=== PATIENT | male | born 1935 | race Caucasian/White ===

== ENCOUNTER 2017-04-02 12:48 | Emergency (ER) | payer MEDICARE ==
--- NOTE | 2017-04-02 13:33 | ERPHSYRPT ---
- History of Present Illness Time Seen by Provider: 04/02/17 13:30 Source: patient Exam Limitations: no limitations Physician History: mild to mod right neck pain for 2 months, no recent injury, hx shingles, no dm, no fever, no trouble swallowing, +positional ache pain is nonrad Timing/Duration: week(s), intermittent Severity: mild Modifying Factors: Improves With: movement Associated Symptoms: No vomiting, No fever, No headaches - Review of Systems Constitutional: No Fever Eyes: No Symptoms Ears, Nose, & Throat: No Throat Pain Respiratory: No Symptoms Cardiac: No Symptoms Abdominal/Gastrointestinal: No Symptoms Musculoskeletal: Neck Pain, No Back Pain Skin: No Rash Neurological: No Dizziness, No Focal Weakness, No Headache Psychological: No Symptoms - Nursing Vital Signs Nursing Vital Signs: Initial Vital Signs Temperature 98.0 F 04/02/17 13:32 Pulse Rate 68 04/02/17 13:32 Blood Pressure 114/61 04/02/17 13:32 O2 Sat by Pulse Oximetry 93 L 04/02/17 13:32 Pain Scale Pain Intensity [] 7 Pain Intensity 7 - Physical Exam General Appearance: no apparent distress Eye Exam: PERRL/EOMI Ears, Nose, Throat Exam: moist mucous membranes Neck Exam: other (tender right paracervical neck, nontender midline neck and back) Respiratory Exam: normal breath sounds Cardiovascular Exam: regular rate/rhythm Gastrointestinal/Abdomen Exam: soft, No tenderness Back Exam: normal inspection Extremity Exam: normal inspection Neurologic Exam: alert, oriented x 3, cooperative Skin Exam: normal color, warm, dry - Course Nursing assessment & vital signs reviewed: Yes - CT Exams Cervical Spine CT Interpretation: Discussed w/radiologist, Other (no fx, no sublux, +degen disease) Ordered Tests: Active Orders 24 hr Category Date Time Status CERVICAL SPINE WO CONTRAST [CT] Stat Exams 04/02/17 13:29 Completed - Progress Progress: unchanged Discussed with : Lobo (your doctor in [place]) Will see patient in: office Counseled pt/family regarding: diagnosis, need for follow-up, rad results - Departure Time of Disposition: 15:00 Departure Disposition: Home Clinical Impression: Cervical disc disease Condition: Stable Critical Care Time: No Referrals: DOCTOR,NO FAMILY [Primary Care Provider] - Additional Instructions: see your doctor, return if worse, tramadol warnings given Prescriptions: Tramadol HCl 50 mg PO Q6-8HPRN PRN #10 tablet PRN Reason: Pain
[2017-04-02 14:12] VITALS: O2SAT 94
--- NOTE | 2017-04-02 14:26 | XRAY ---
Indication: Right neck soft tissue swelling. Neck pain. Multiple contiguous axial images obtained through the cervical spine. Sagittal and coronal reformatted images obtained. Comparison: None There is age-related osteopenia. Axial images negative for acute fracture, suspicious bony lesions, or spinal canal stenosis. Mild/moderate multilevel bilateral degenerative facet arthropathy. Also mild atlantoaxial degenerative changes. Sagittal and coronal reformatted images demonstrates slight straightening of the cervical lordosis, positional versus paraspinal spasm. 2 mm C5 degenerative anterolisthesis on C6. Minimal C4-C5 disc space narrowing. No acute compression fracture or jumped facet. Normal appearing craniocervical junction. Visualized noncontrasted soft tissues demonstrates mild bilateral carotid calcifications and biapical pulmonary fibrosis/scarring. Base of the brain unremarkable. Impression: 1. Lordotic straightening, positional versus paraspinal spasm. 2. Osteopenia and multilevel degenerative changes as detailed. 3. Remaining CT cervical spine without contrast exam is negative. CT DI 61.45
[2017-04-02 15:27] VITALS: BP 132/72; PULSE 74
== END 2017-04-02 15:17 | disposition home or self-care (01) ==
LOC: ED 12:48
DX: M50.80 Other cervical disc disorders, unspecified cervical region (principal); M54.2 Cervicalgia
CPT/HCPCS: 72125; 99283; 99284